=== PATIENT | female | born 1940 | race Caucasian/White ===

== ENCOUNTER 2023-07-15 06:24 | Day surgery (SDC) | payer MEDICARE, SELFPAY ==
[2023-07-11 11:31] VITALS: BMI 25.1
--- NOTE | 2023-07-14 08:54 | P.CONAN_ITS ---
Documented by User: Leena Carpio NP 07/14/23 08:54 HPI - Anesthesia Eval Consult details Narrative: 82yo F for Upper Endoscopy [facility] Past Medical History Medical History (Updated 07/11/23 @ 11:27 by Anais Aj RN) Diverticulosis Elevated cholesterol Anxiety Barretts esophagus GERD (gastroesophageal reflux disease) Surgical History Surgical History (Updated 07/11/23 @ 11:27 by Anais Aj RN) Hx of total knee replacement History of esophagogastroduodenoscopy (EGD) H/O colonoscopy Social History Social History Patient Tobacco Use Status: Tobacco use Unknown Use of substances other than those prescribed or required for medical reasons: No Advance Directives: No (unknown) Advance Directives Information Provided: Yes Advance Directives on File: No Meds Allergies Allergy/AdvReac Type Severity Reaction Status Date / Time Sulfa (Sulfonamide Allergy Unknown Unknown Verified 07/15/23 06:56 Antibiotics) Home Medications ?Medication ?Instructions ?Recorded ?Confirmed ?Last Taken ?Type ascorbic acid (vitamin C) 1,000 mg 1,000 mg PO DAILY 07/11/23 07/11/23 Unknown History tablet (Vitamin C) hizftck-fzuyaxrmekwyq-ytigvtqm 250 1 tab PO Q4-6H PRN Migraine 07/11/23 07/11/23 Unknown History mg-250 mg-65 mg tablet (Excedrin Headache Migraine) atorvastatin 10 mg tablet 10 mg PO DAILY 07/11/23 07/11/23 Unknown History cholecalciferol (vitamin D3) 25 25 mcg PO DAILY 07/11/23 07/11/23 Unknown History mcg (1,000 unit) capsule (Vitamin D3) citalopram 10 mg tablet 10 mg PO DAILY 07/11/23 07/11/23 Unknown History cyanocobalamin (vitamin B-12) 500 1,000 mcg PO DAILY 07/11/23 07/11/23 Unknown History mcg tablet (Vitamin B-12) estradiol 0.01% (0.1 mg/gram) vaginal 07/11/23 Unknown History vaginal cream omeprazole 40 mg capsule,delayed 40 mg PO DAILY 07/11/23 07/11/23 Unknown History release Exam Height,Weight and Vital Signs: Height 5 ft 4 in Weight 66.224 kg Assessment and Plan Assessment Anesthesia Assessment: Chart Reviewed Documented by User: Milton Romano MD 07/15/23 07:11 [facility] [place] Past Medical History Medical History (Updated 07/11/23 @ 11:27 by Anais Aj RN) Diverticulosis Elevated cholesterol Anxiety Barretts esophagus GERD (gastroesophageal reflux disease) Family History Family history of problems with anesthesia: No Surgical History Surgical History (Updated 07/11/23 @ 11:27 by Anais Aj RN) Hx of total knee replacement History of esophagogastroduodenoscopy (EGD) H/O colonoscopy History of Problems with Anesthesia: No Social History Social History Patient Tobacco Use Status: Tobacco use Unknown Use of substances other than those prescribed or required for medical reasons: No Advance Directives: No (unknown) Advance Directives Information Provided: Yes Advance Directives on File: No Meds Allergies Allergy/AdvReac Type Severity Reaction Status Date / Time Sulfa (Sulfonamide Allergy Unknown Unknown Verified 07/15/23 06:56 Antibiotics) Home Medications ?Medication ?Instructions ?Recorded ?Confirmed ?Last Taken ?Type ascorbic acid (vitamin C) 1,000 mg 1,000 mg PO DAILY 07/11/23 07/11/23 Unknown History tablet (Vitamin C) dpbewld-nubqxsbfnnned-nembvjuf 250 1 tab PO Q4-6H PRN Migraine 07/11/23 07/11/23 Unknown History mg-250 mg-65 mg tablet (Excedrin Headache Migraine) atorvastatin 10 mg tablet 10 mg PO DAILY 07/11/23 07/11/23 Unknown History cholecalciferol (vitamin D3) 25 25 mcg PO DAILY 07/11/23 07/11/23 Unknown History mcg (1,000 unit) capsule (Vitamin D3) citalopram 10 mg tablet 10 mg PO DAILY 07/11/23 07/11/23 Unknown History cyanocobalamin (vitamin B-12) 500 1,000 mcg PO DAILY 07/11/23 07/11/23 Unknown History mcg tablet (Vitamin B-12) estradiol 0.01% (0.1 mg/gram) vaginal 07/11/23 Unknown History vaginal cream omeprazole 40 mg capsule,delayed 40 mg PO DAILY 07/11/23 07/11/23 Unknown His tory release Exam Airway Mallampati Class: II TM Dist: >3cm Neck ROM: Full Loose/Missing/Broken Teeth: No Heart: rrr Lungs: cta Assessment and Plan Assessment Anesthesia Assessment: Anesthesia Plan Discussed Final Anesthetic Review Family History of Problems with Anesthesia: No History of Problems with Anesthesia: No NPO: Yes ASA Class: II Final Preanesthetic Review: No Changes in Pt Med Stat, Meds/Allgs Chart Reviewed, Consent Obtained/Reviewed and Anes Risks/Benef Reviewed Patient Risk: Intermediate Procedure Risk: Intermediate Anesthetic Plan Anesthetic Plan: MAC: Disposition: Standard PACU
[2023-07-15 06:51] VITALS: BP 154/80; PULSE 68; RESP 18; TEMP 36.6; O2SAT 97
[2023-07-15 06:55] VITALS: BMI 24.8
[2023-07-15] MEDS: Lactated Ringers 1,000 ML 100 ML IVCONT (07:08)
[2023-07-15 07:57] VITALS: BP 135/71; PULSE 61; RESP 16; TEMP 36.1; O2SAT 99
--- NOTE | 2023-07-15 08:01 | PM.OP ---
Brief Operative Note Date of Service: 07/15/23 Pre-op diagnosis: GERD, Alonso's Post-op diagnosis: other (Same, Alonso's, Hiatal hernia, Gastritis) Procedure: EGD with biopsies Surgeon: Shen Reese MD Anesthesia: MAC Was an Clinical Informatics Director used for this Procedure?: No Estimated blood loss (mL): 2.0 Pathology: other (A. EG Junction at 36cm B. Gastric antrum) Condition: stable Disposition: PACU
[2023-07-15 08:12] VITALS: BP 125/66; PULSE 60; RESP 15; O2SAT 95
[2023-07-15 08:27] VITALS: BP 132/74; PULSE 64; RESP 16; TEMP 36.2; O2SAT 95
--- NOTE | 2023-07-15 08:43 | OP_ITS ---
DATE OF SERVICE: 07/15/2023 SURGEON: Shen Reese MD INDICATIONS: The patient presents for evaluation of gastroesophageal reflux and history of Alonso esophagus. Full consent obtained from her for this, including risks of bleeding and perforation. PREOPERATIVE DIAGNOSIS: POSTOPERATIVE DIAGNOSIS: PROCEDURE PERFORMED: Esophagogastroduodenoscopy with biopsies. ESTIMATED BLOOD LOSS: COMPLICATIONS: ANESTHESIA: Monitored anesthesia care. ASSISTANTS: SPECIMENS: PREOPERATIVE DIAGNOSES: Gastroesophageal reflux, history of Alonso esophagus. POSTOPERATIVE DIAGNOSES: Gastroesophageal reflux, history of Alonso esophagus, hiatal hernia, gastritis. DESCRIPTION OF PROCEDURE: The patient was placed in the left lateral decubitus position. The Olympus video gastroscope was passed in the posterior oropharynx and upper esophagus under direct vision. The scope was passed slowly into the distal esophagus. The gastroesophageal junction appeared at 36 cm. At this level were small, less than 1 cm areas of possible projections of Alonso mucosa. There was no evidence of any esophagitis, ulceration, nor mass. There was no stricture. The scope easily entered the stomach. There was a small hiatal hernia. The scope was advanced to the pylorus and the duodenum was cannulated to the descending portion. The duodenum including the bulb appeared normal without mass or ulceration. The scope was withdrawn back to the stomach. The gastric antrum had some changes consistent with chronic gastritis with erythema and edema, but no erosions or ulceration. There was good peristalsis. Biopsies were obtained from the gastric antrum. The scope was retroflexed, visualizing the proximal stomach carefully, which appeared normal other than some hyperplastic appearing gastric polyps. There was no mass or ulceration. The scope was straightened and withdrawn back to the esophagus. Biopsies were obtained at the EG junction at 36 cm. Proximal to this, the esophageal mucosa appeared normal. Scope was withdrawn from the patient. She tolerated the procedure well and was returned to the recovery area in stable condition. IMPRESSION: 1. Hiatal hernia, gastroesophageal reflux, history of Alonso esophagus. 2. Chronic appearing gastritis. 3. Gastric polyps. PLAN: The results of biopsies will be checked. Given these minimal findings and her age, I do not think she will need any further upper endoscopies for surveillance. She was advised to continue her daily omeprazole. She was advised not to use any aspirin and NSAIDs for 1 week. This has been discussed with her . As long as she is doing well, she could see me on a p.r.n. basis. Shen Reese MD [facility] / [phone]
== END 2023-07-15 09:01 | disposition home or self-care (01) ==
PROVIDERS: PCP Family Medicine; Visit Provider Internal Medicine
PROC: 0DJ08ZZ Inspection of Upper Intestinal Tract, Via Natural or Artificial Opening Endoscopic (ICD-10-PCS; CPT 43235; principal; 2023-07-15 07:30)
DX: K21.00 Gastro-esophageal reflux disease with esophagitis, without bleeding (principal); B37.81 Candidal esophagitis; K29.70 Gastritis, unspecified, without bleeding; K44.9 Diaphragmatic hernia without obstruction or gangrene; Z87.19 Personal history of other diseases of the digestive system
CPT/HCPCS: 43239; 88305; 88313; 88342; J2704

== ENCOUNTER 2023-07-18 09:05 | Outpatient (REF) | payer MEDICARE, SELFPAY ==
[2023-07-18 10:53] LABS: MANUAL DIFF FLAG NO
[2023-07-18 11:09] LABS: Basophils Percent Auto 0.7 % (0-2); Eosinophils Absolute Auto 0.2 X10*3/uL (0.0-0.4); Eosinophils Percent Auto 5.2 % (0-4); Hematocrit 37.2 % (37.0-47.0); Hemoglobin 12.6 g/dl (12.0-16.0); Imm Gran Abs Auto 0.01 X10*3/uL (0.00-0.03); Imm Gran Pct Auto 0.2 % (0.0-0.4); Lymphocytes Absolute Auto 0.9 X10*3/uL (1.2-4.9); Lymphocytes Percent Auto 23.3 % (20-40); Mean Corpuscular HGB Conc 33.9 g/dl (31.0-35.0); Mean Corpuscular Hemoglobin 34.1 pg (27.0-33.0); Mean Corpuscular Volume 100.8 fL (80.0-98.0); Mean Platelet Volume 9.2 fL (9.4-12.3); Monocytes Absolute Auto 0.4 X10*3/uL (0.1-1.2); Monocytes Percent Auto 8.7 % (2-11); Neutrophils Absolute Auto 2.5 x10*3/uL (2.0-8.3); Neutrophils Percent Auto 61.9 % (45-73); Platelet Count 359 X10*3/uL (160-400); Red Blood Count 3.69 X10*6/uL (4.20-5.50); Red Cell Distribution Width 13.3 % (11.0-16.0)
[2023-07-18 11:56] LABS: Alanine Aminotransferase 12 U/L (0-31); Aspartate Amino Transferase 16 U/L (5-31); Blood Urea Nitrogen 10 mg/dL (9-16); Estimated Glomerular Filt Rate > 60
== END 2023-07-18 09:06 | disposition home or self-care (01) ==
LOC: HO.10HDL 09:05
PROVIDERS: Visit Provider Family Medicine
DX: E78.00 Pure hypercholesterolemia, unspecified (principal); K21.9 Gastro-esophageal reflux disease without esophagitis; Z82.49 Family history of ischemic heart disease and other diseases of the circulatory system; Z79.899 Other long term (current) drug therapy
CPT/HCPCS: 36415; 82550; 82565; 84450; 84460; 84520; 85025

== ENCOUNTER 2023-10-06 07:52 | Outpatient (REF) | payer MEDICARE, SELFPAY ==
--- NOTE | ~2023-10-06 | US_ITS ---
EXAMINATION: US ABDOMEN COMPLETE CLINICAL INFORMATION: Upper abdominal pain. COMPARISON: None available. TECHNIQUE: Real-time imaging of the abdominal viscera. Limited visualization due to bowel gas. FINDINGS: PANCREAS: Limited visualization of pancreatic tail and head. Imaged portion of pancreatic body is unremarkable. ABDOMINAL AORTA: Limited visualization. INFERIOR VENA CAVA: Visualized portions are normal. LIVER: Increased hepatic parenchymal heterogeneity and echogenicity could be associated with hepatocellular disease/hepatic steatosis and substantially limits visualization. Correlation with liver function tests and clinical exam recommended to determine further management. GALLBLADDER: No gallstones. No gallbladder wall thickening. COMMON BILE DUCT: Normal in caliber measuring 0.2 cm in diameter. RIGHT KIDNEY: No hydronephrosis. No renal calculi. Limited visualization. The kidney measures 9.5 cm in maximum dimension. LEFT KIDNEY: No hydronephrosis. No renal calculi. Limited visualization. The kidney measures 8.8 cm in maximum dimension. SPLEEN: Normal. The spleen measures 7.6 cm in maximum dimension. FREE FLUID: None. US/US abdomen complete IMPRESSION: Increased hepatic parenchymal heterogeneity and echogenicity could be associated with hepatocellular disease/hepatic steatosis and substantially limits visualization. Correlation with liver function tests and clinical exam recommended to determine further management. This study was presented today October 15, 2023 for interpretation. Stat results provided at this time as requested by referring provider.
== END 2023-10-06 07:53 | disposition home or self-care (01) ==
LOC: HO.US 07:52
PROVIDERS: PCP Family Medicine; Visit Provider Internal Medicine
DX: R10.10 Upper abdominal pain, unspecified (principal)
CPT/HCPCS: 76700

== ENCOUNTER 2024-03-12 10:57 | Outpatient (REF) | payer MEDICARE, SELFPAY ==
[2024-03-12 13:34] LABS: Alanine Aminotransferase 21 U/L (0-31); Aspartate Amino Transferase 22 U/L (5-31)
== END 2024-03-12 10:58 | disposition home or self-care (01) ==
LOC: HO.10HDL 10:57
PROVIDERS: Visit Provider Family Medicine
DX: K75.81 Nonalcoholic steatohepatitis (NASH) (principal); E78.00 Pure hypercholesterolemia, unspecified; Z79.899 Other long term (current) drug therapy
CPT/HCPCS: 36415; 82550; 84450; 84460